=== PATIENT | female | born 1960 | race Caucasian/White ===

== ENCOUNTER → 2017-09-13 | Outpatient (CLI) | payer BC, OTHER ==
[~2017-09-13] MED LIST: No meds per pt.
[2017-09-13 11:25] LABS: BASOPHILS # (AUTO) 0.04 x10^3/uL (0-0.1); BASOPHILS % (AUTO) 1 % (0-1); EOSINOPHILS # (AUTO) 0.35 x10^3/uL (0-0.4); EOSINOPHILS % (AUTO) 5 % (1-7); LYMPHOCYTES # (AUTO) 2.56 x10^3/uL (1-3.4); LYMPHOCYTES % (AUTO) 36 % (22-44); MD NO; MEAN CORPUSCULAR HEMOGLOBIN 30.9 pg (27.0-34.8); MEAN CORPUSCULAR HGB CONC 33.7 g/dL (32.4-35.8); MEAN CORPUSCULAR VOLUME 91.7 fL (80-100); MEAN PLATELET VOLUME 8.9 fL (7.4-10.4); MONOCYTES # (AUTO) 0.64 x10^3/uL (0.2-0.8); MONOCYTES % (AUTO) 9 % (2-9); NEUTROPHILS # (AUTO) 3.47 x10^3/uL (1.8-6.8); NEUTROPHILS % (AUTO) 49 % (42-75); PLATELET COUNT 361 x10^3/uL (130-400); RED BLOOD COUNT 4.83 x10^6/uL (3.82-5.3)
[2017-09-13 11:34] LABS: ANION GAP 5 mmol/L (5-15); CALCIUM 8.8 mg/dL (8.5-10.1); CHLORIDE 106 mmol/L (98-107); CREATININE 0.82 mg/dL (0.55-1.02)
[2017-09-13 12:17] LABS: CULTURE INDICATED? YES; MICROSCOPIC AUTO
== END | disposition home or self-care (01) ==
LOC: STAR 10:14
PROVIDERS: ATTEND Obstetrics & Gynecology Gynecology
DX: Z01.818 Encounter for other preprocedural examination (principal); C56.1 Malignant neoplasm of right ovary
CPT/HCPCS: 36415; 80048; 81001; 82670; 84403; 84703; 85025; 87086

== ENCOUNTER 2017-09-17 07:37 | Day surgery (SDC) | payer BC ==
[~2017-09-17] VITALS: Ht 167.6 cm; Wt 84.3 kg
[~2017-09-17 07:37] MED LIST changes: +EPINEPHRINE 1 MG/ML, 1ML ONE; +FLUORESCEIN SODIUM 500 MG/5 ML ONE; +FUROSEMIDE 20 MG/2 ML ONE; +INDIGO CARMINE 0.8%, 5ML ONE; +LIDOCAINE 1%, 50ML ONE
[2017-09-17] MEDS ORDERED: LACTATED RINGERS 1,000 ML IV SCH (08:11)
[2017-09-17 08:34] VITALS: BP 113/75
[2017-09-17] MEDS ORDERED: MIDAZOLAM 1 MG/ML, 2ML ONE (08:42)
[2017-09-17] MEDS ORDERED: FENTANYL PF 250 MCG/5ML ONE (08:43)
[2017-09-17] MEDS ORDERED: LIDOCAINE-MPF 2% ,5ML ONE (08:45)
[2017-09-17] MEDS ORDERED: PROPOFOL 10 MG/ML, 20ML ONE (08:45)
[2017-09-17] MEDS ORDERED: ONDANSETRON 2MG/ML, 2ML ONE (09:58)
[2017-09-17] MEDS ORDERED: METOCLOPRAMIDE 5 MG/ML, 2ML ONE (09:58)
[2017-09-17] MEDS ORDERED: PROPOFOL 10 MG/ML, 50ML ONE (09:58)
[2017-09-17] MEDS ORDERED: KETOROLAC 30 MG/1 ML ONE (09:58)
[2017-09-17] MEDS ORDERED: DEXAMETHASONE 4 MG/ML, 1ML ONE (09:58)
[2017-09-17] MEDS ORDERED: ROCURONIUM 10 MG/ML,10ML ONE (09:58)
[2017-09-17] MEDS ORDERED: LIDOCAINE 1%-EPI 1:100K, 50ML IM ONE (10:25)
[2017-09-17] MEDS ORDERED: ONDANSETRON 2MG/ML, 2ML IVPush PRN (10:30)
[2017-09-17] MEDS ORDERED: HYDROmorphone 1 MG/ML, 1ML IV PRN (10:30)
[2017-09-17] MEDS ORDERED: LABETALOL 5MG/ML, 20ML IV PRN (10:30)
[2017-09-17] MEDS ORDERED: ACETAMINOPHEN 325 MG TABLET PO PRN (10:30)
[2017-09-17] MEDS ORDERED: hydrALAzine 20 MG/ML, 1ML IV PRN (10:30)
[2017-09-17] MEDS ORDERED: PROMETHAZINE 25 MG/ML, 1ML IV PRN (10:30)
[2017-09-17] MEDS ORDERED: FENTANYL PF 100 MCG/2ML IV PRN (10:30)
[2017-09-17] MEDS ORDERED: OXYcodone 5 MG/5 ML ORAL.SOL UDC PO PRN (10:30)
[2017-09-17] MEDS ORDERED: MEPERIDINE/PF 25MG/0.5ML IVPush PRN (10:30)
[2017-09-17] MEDS ORDERED: OXYcodone 5 MG/5 ML ORAL.SOL UDC ONE (11:08)
[2017-09-17] MEDS ORDERED: FENTANYL PF 100 MCG/2ML ONE (11:08)
[2017-09-17] MEDS ORDERED: ACETAMINOPHEN 650 MG/20.3 ML UDC ONE (11:08)
== END 2017-09-17 13:05 | disposition home or self-care (01) ==
LOC: OUT 07:37
PROVIDERS: ATTEND Obstetrics & Gynecology Gynecology
DX: D27.0 Benign neoplasm of right ovary (principal); Z98.890 Other specified postprocedural states
CPT/HCPCS: 58661; 88305; J0171; J1100; J1885; J1940; J2250; J2405; J2704; J2765; J3010; J3490; J7120